=== PATIENT | female | born 1980 | race Asian ===

== ENCOUNTER 2017-11-05 06:13 | Inpatient (IN) | payer OTHER ==
[2017-11-05 07:29] LABS: INR 0.96; PARTIAL THROMBOPLASTIN TIME 27.9 Sec (25.0-35.0); PROTIME 12.9 Sec (11.9-14.9)
[2017-11-05] MEDS ORDERED: MIDAZOLAM 1 MG/ML 2 ML INJ (07:49)
[2017-11-05] MEDS ORDERED: morphine SULFATE/PF (10 MG/10 ML) INJ (07:49)
[2017-11-05] MEDS ORDERED: PHENYLephrine (100 MCG/ML) 5ML SYG (08:16)
[2017-11-05] MEDS: VASOPRESSIN 20 UNITS INJ (08:49)
[2017-11-05] MEDS ORDERED: VASOPRESSIN 20 UNITS INJ (09:10)
[2017-11-05] MEDS ORDERED: ROCURONIUM 50 MG INJ (10:14)
[2017-11-05] MEDS ORDERED: LIDOCAINE 2% (SDV) 5 ML INJ (10:14)
[2017-11-05] MEDS ORDERED: METOCLOPRAMIDE 10 MG INJ (10:14)
[2017-11-05] MEDS ORDERED: PROPOFOL 20 ML (10:14)
[2017-11-05] MEDS ORDERED: ONDANSETRON 4 MG INJ ×2 (10:14→10:44)
[2017-11-05] MEDS ORDERED: CEFAZOLIN 1 GM INJ (10:17)
[2017-11-05] MEDS ORDERED: LACTATED RINGER'S 1,000 ML IV (10:24)
[2017-11-05] MEDS ORDERED: DIPHENHYDRAMINE 50 MG CAP PO ×2 (10:30)
[2017-11-05] MEDS ORDERED: HYDROmorphONE 1 MG/ML SYG IV ×2 (10:30)
[2017-11-05] MEDS ORDERED: ZOLPIDEM 5 MG TAB PO ×2 (10:30)
[2017-11-05] MEDS ORDERED: HYDROCODONE/APAP (5/325) TAB PO ×3 (10:30)
[2017-11-05] MEDS ORDERED: KETOROLAC 30 MG INJ IV (10:30)
[2017-11-05] MEDS ORDERED: BISACODYL (EC) 5 MG TAB PO ×2 (10:30)
[2017-11-05] MEDS ORDERED: MEPERIDINE 25 MG INJ (10:43)
[2017-11-05] MEDS ORDERED: HYDROmorphONE (0.2 MG/ML) 10ML SYG IV ×2 (11:00)
[2017-11-05] MEDS ORDERED: FENTAnyl 50 MCG/ML VIAL IV (11:00)
[2017-11-05] MEDS ORDERED: MIDAZOLAM 1 MG/ML 2 ML INJ IV (11:00)
[2017-11-05] MEDS: MEPERIDINE 25 MG INJ IV (11:13)
[2017-11-05] MEDS: ONDANSETRON 4 MG INJ IV (11:14)
[2017-11-05] MEDS: KETOROLAC 30 MG INJ IV ×2 (11:15→18:26)
[2017-11-05] MEDS: LACTATED RINGER'S 1,000 ML IV ×2 (11:15→19:46)
[2017-11-05] MEDS: DIPHENHYDRAMINE 50 MG INJ IV (11:33)
[2017-11-05] MEDS: METOCLOPRAMIDE 10 MG INJ IV (11:33)
[2017-11-05] MEDS ORDERED: METOCLOPRAMIDE 10 MG TAB PO (12:00)
[2017-11-05] MEDS: METOCLOPRAMIDE 10 MG TAB PO ×2 (12:00→18:26)
[2017-11-05] MEDS ORDERED: CEFAZOLIN 1 GM/50 ML (PMX) 50 ML IVPB (14:00)
[2017-11-05] MEDS: CEFAZOLIN 1 GM/50 ML (PMX) 50 ML IVPB (17:17)
[2017-11-06] MEDS: LACTATED RINGER'S 1,000 ML IV ×5 (04:11→21:41)
[2017-11-06 04:50] LABS: ADD MAN DIFF? NO
[2017-11-06 04:56] LABS: WHITE BLOOD COUNT 9.1 10^3/ul (4.8-10.8)
[2017-11-06 04:56] LABS: BASOPHILS % 0.4 % (0.0-2.0); EOSINOPHILS # 0.1 10^3/ul (0.0-0.5); EOSINOPHILS % 0.8 % (0.0-7.0); HEMATOCRIT 29.9 % (37.0-47.0); HEMOGLOBIN 9.9 g/dl (12.0-16.0); LYMPHOCYTES # 1.2 10^3/ul (0.8-2.9); LYMPHOCYTES % 13.2 % (15.0-51.0); MEAN CORPUSCULAR HEMOGLOBIN 28.3 pg (29.0-33.0); MEAN CORPUSCULAR HGB CONC 33.1 g/dl (32.0-37.0); MEAN CORPUSCULAR VOLUME 85.4 fl (82.0-101.0); MEAN PLATELET VOLUME 10.2 fl (7.4-10.4); MONOCYTE # 0.5 10^3/ul (0.3-0.9); MONOCYTES % 5.9 % (0.0-11.0); NEUTROPHIL # 7.2 10^3/ul (1.6-7.5); NEUTROPHILS % 79.4 % (39.0-77.0); PLATELET COUNT 287 10^3/UL (140-415); RED CELL DISTRIBUTION WIDTH 13.1 % (11.5-14.5)
[2017-11-06 05:18] LABS: ANION GAP 8 (8-16); BLOOD UREA NITROGEN 2 mg/dl (7-20); CARBON DIOXIDE 30 mmol/L (21-31); CHLORIDE 108 mmol/L (97-110); CREATININE 0.57 mg/dl (0.44-1.00); POTASSIUM 3.9 mmol/L (3.5-5.1); SODIUM 142 mmol/L (135-144)
[2017-11-06] MEDS: METOCLOPRAMIDE 10 MG TAB PO ×5 (06:16→23:24)
[2017-11-06] MEDS: CEFAZOLIN 1 GM/50 ML (PMX) 50 ML IVPB ×4 (06:16→21:40)
[2017-11-06] MEDS: KETOROLAC 30 MG INJ IV ×5 (06:16→21:40)
[2017-11-06 11:40] LABS: ADD UMIC YES; UR ASCORBIC ACID NEGATIVE (NEGATIVE); UR BILIRUBIN (Dip) NEGATIVE (NEGATIVE); UR BLOOD (Dip) 3+ mg/dL (NEGATIVE); UR CLARITY CLEAR (CLEAR); UR COLOR STRAW (YELLOW); UR GLUCOSE (Dip) NEGATIVE (NEGATIVE); UR KETONES (Dip) NEGATIVE (NEGATIVE); UR LEUKOCYTE ESTERASE (Dip) NEGATIVE Leu/ul (NEGATIVE); UR NITRITE (Dip) NEGATIVE (NEGATIVE); UR RBC 1 /HPF (0-5); UR SPECIFIC GRAVITY (Dip) 1.001 (1.003-1.030); UR TOTAL PROTEIN (Dip) NEGATIVE (NEGATIVE); UR UROBILINOGEN (Dip) NEGATIVE (NEGATIVE); UR WBC 1 /HPF (0-5)
[2017-11-06] MEDS: HYDROCODONE/APAP (5/325) TAB PO (14:05)
[2017-11-07] MEDS: LACTATED RINGER'S 1,000 ML IV ×3 (02:24→11:27)
[2017-11-07 05:20] LABS: ADD MAN DIFF? NO
[2017-11-07] MEDS: CEFAZOLIN 1 GM/50 ML (PMX) 50 ML IVPB ×3 (05:22→21:53)
[2017-11-07] MEDS: METOCLOPRAMIDE 10 MG TAB PO ×3 (05:22→17:34)
[2017-11-07] MEDS: KETOROLAC 30 MG INJ IV ×2 (05:22→11:26)
[2017-11-07 05:32] LABS: BASOPHIL # 0.1 10^3/ul (0.0-0.1); BASOPHILS % 0.6 % (0.0-2.0); EOSINOPHILS # 0.2 10^3/ul (0.0-0.5); EOSINOPHILS % 1.7 % (0.0-7.0); HEMOGLOBIN 9.1 g/dl (12.0-16.0); LYMPHOCYTES # 1.1 10^3/ul (0.8-2.9); LYMPHOCYTES % 12.3 % (15.0-51.0); MEAN CORPUSCULAR HEMOGLOBIN 27.9 pg (29.0-33.0); MEAN CORPUSCULAR HGB CONC 32.5 g/dl (32.0-37.0); MEAN CORPUSCULAR VOLUME 85.9 fl (82.0-101.0); MEAN PLATELET VOLUME 10.3 fl (7.4-10.4); MONOCYTE # 0.6 10^3/ul (0.3-0.9); MONOCYTES % 6.9 % (0.0-11.0); NEUTROPHIL # 6.9 10^3/ul (1.6-7.5); NEUTROPHILS % 78.3 % (39.0-77.0); PLATELET COUNT 270 10^3/UL (140-415); RED BLOOD COUNT 3.26 10^6/ul (4.20-5.40)
[2017-11-07 05:32] LABS: WHITE BLOOD COUNT 8.8 10^3/ul (4.8-10.8)
[2017-11-07] MEDS: HYDROCODONE/APAP (5/325) TAB PO (06:19)
[2017-11-07] MEDS: IBUPROFEN 800 MG TAB GTB ×2 (14:14→21:53)
[2017-11-07] MEDS ORDERED: KETOROLAC 30 MG INJ IV ×2 (16:30)
[2017-11-08] MEDS: METOCLOPRAMIDE 10 MG TAB PO ×2 (00:18→05:30)
[2017-11-08] MEDS: HYDROCODONE/APAP (5/325) TAB PO (04:53)
[2017-11-08] MEDS: IBUPROFEN 800 MG TAB GTB (05:30)
[2017-11-08] MEDS: CEFAZOLIN 1 GM/50 ML (PMX) 50 ML IVPB (05:30)
[2017-11-08 05:38] LABS: ADD MAN DIFF? NO
[2017-11-08 05:44] LABS: BASOPHILS % 0.6 % (0.0-2.0); EOSINOPHILS # 0.4 10^3/ul (0.0-0.5); HEMATOCRIT 27.9 % (37.0-47.0); HEMOGLOBIN 9.1 g/dl (12.0-16.0); LYMPHOCYTES # 1.2 10^3/ul (0.8-2.9); LYMPHOCYTES % 16.4 % (15.0-51.0); MEAN CORPUSCULAR HGB CONC 32.6 g/dl (32.0-37.0); MEAN CORPUSCULAR VOLUME 85.8 fl (82.0-101.0); MEAN PLATELET VOLUME 10.6 fl (7.4-10.4); MONOCYTE # 0.5 10^3/ul (0.3-0.9); MONOCYTES % 7.2 % (0.0-11.0); NEUTROPHILS % 69.4 % (39.0-77.0); PLATELET COUNT 314 10^3/UL (140-415); RED BLOOD COUNT 3.25 10^6/ul (4.20-5.40); RED CELL DISTRIBUTION WIDTH 12.8 % (11.5-14.5)
[2017-11-08 05:44] LABS: WHITE BLOOD COUNT 7.2 10^3/ul (4.8-10.8)
== END 2017-11-08 11:01 | disposition home or self-care (01) | DRG 743 ==
LOC: SDS 06:13 → MS1 12:21 → SDS 10:34 → REC 10:30 → MS1 14:22
PROC: 0UB90ZZ Excision of Uterus, Open Approach (ICD-10-PCS; principal; 2017-11-05 07:30)
PROC: 0UN70ZZ Release Bilateral Fallopian Tubes, Open Approach (ICD-10-PCS; 2017-11-05 07:30)
PROC: 0UN90ZZ Release Uterus, Open Approach (ICD-10-PCS; 2017-11-05 07:30)
DX: D25.0 Submucous leiomyoma of uterus (principal); D50.0 Iron deficiency anemia secondary to blood loss (chronic); R10.2 Pelvic and perineal pain; N93.9 Abnormal uterine and vaginal bleeding, unspecified; N73.6 Female pelvic peritoneal adhesions (postinfective); N80.3 Endometriosis of pelvic peritoneum
CPT/HCPCS: 80051; 81001; 82565; 84520; 85025; 85610; 85730; 86850; 86900; 86901; 86920; 87086; 88305